=== PATIENT | female | born 1960 | race Two or more races ===

== ENCOUNTER 2023-12-07 16:42 | Emergency (ER) | payer BC ==
[~2023-12-07] VITALS: Ht 165.1 cm; Wt 65.8 kg
[2023-12-07] MEDS ORDERED: NATEGLINIDE60 MG (16:47)
[2023-12-07] MEDS ORDERED: JARDIANCE10 MG (16:47)
[2023-12-07] MEDS ORDERED: NIACOR500 MG (16:47)
[2023-12-07] MEDS ORDERED: CHILDREN'S ASPI81 MG (16:47)
[2023-12-07] MEDS ORDERED: JANUMET XR 1001 EACH (16:47)
[2023-12-07] MEDS ORDERED: HORIZANT300 MG (16:48)
[2023-12-07] MEDS ORDERED: TRAZODONE HCL100 MG (16:48)
[2023-12-07] MEDS ORDERED: COZAAR25 MG (16:48)
[2023-12-07] MEDS ORDERED: QULIPTA30 MG (16:48)
[2023-12-07] MEDS ORDERED: DIPHENHYDRAMINE HCL 50 MG/ML VIAL 1ML IM STA (18:25)
[2023-12-07] MEDS ORDERED: DIPHENHYDRAMINE HCL 50 MG/ML VIAL 1ML ONE (18:56)
== END 2023-12-07 19:40 | disposition home or self-care (01) ==
LOC: ER 16:43
DX: B86 Scabies (principal); R21 Rash and other nonspecific skin eruption; E11.9 Type 2 diabetes mellitus without complications; Z79.84 Long term (current) use of oral hypoglycemic drugs